=== PATIENT | male | born 1970 | race Caucasian/White ===

== ENCOUNTER 2023-11-20 22:35 | Day surgery (SDC) | payer OTHER ==
[~2023-11-20] VITALS: Ht 182.9 cm; Wt 127.0 kg
[~2023-11-20 22:35] MED LIST: Lidocaine PF 2% (20 MG/ML) 5 ML VIAL IV ONE; Ondansetron 4 MG/2 ML VIAL IV ONE; Rocuronium 50 MG/5 ML Multi-Dose VIAL IV ONE; Succinylcholine PF 200 MG/10 ML SYRINGE IV ONE; ceFAZolin 2 G VIAL IV ONE; dexAMETHasone 10 MG/ML VIAL IV ONE; fentaNYL 50 MCG/ML 2 ML VIAL IV ONE; fentaNYL 50 MCG/ML 5 ML VIAL IV ONE
[2023-11-20 22:54] VITALS: BP 167/96; PULSE 85; TEMP 98
[2023-11-20] MEDS ORDERED: LR 1,000 ML IV SCH (23:00)
[2023-11-20] MEDS ORDERED: LAMISIL250 M1 PO (23:13)
[2023-11-20] MEDS ORDERED: CELEBREX 200MG200 MG PO (23:14)
[2023-11-20] MEDS ORDERED: LOFENA25 MG PO (23:15)
[2023-11-20 23:30] VITALS: BP_SYST 167
[2023-11-20] MEDS ORDERED: HYDROmorphone 1 MG/1 ML SYRINGE [PACU/SDC ONLY] IV PRN (23:30)
[2023-11-20] MEDS ORDERED: Meperidine 50 MG/ML 1 ML VIAL IV PRN (23:30)
[2023-11-20] MEDS ORDERED: hydrALAZINE 20 MG/ML 1 ML VIAL IV PRN (23:30)
[2023-11-20] MEDS ORDERED: Ondansetron 4 MG/2 ML VIAL IV PRN (23:30)
[2023-11-20] MEDS ORDERED: fentaNYL 50 MCG/ML 1 ML SYRINGE/VIAL [PACU/SDC ONLY] IV PRN (23:30)
--- NOTE | 2023-11-20 23:40 | NUR ---
Admission completed. Dr Beebe has talked with the pt and answered any questions. Consent has been signed and pt is being transported down for surgery now (0040).
[2023-11-21] VITALS (9 sets, daily range): BP systolic 113–146; BP diastolic 71–89; PULSE 72–90; TEMP 97.9–99
[2023-11-21] MEDS ORDERED: fentaNYL 50 MCG/ML 2 ML VIAL IV ONE (02:18)
[2023-11-21] MEDS ORDERED: oxyCODONE 5 MG TAB PO PRN (03:30)
[2023-11-21] MEDS ORDERED: Acetaminophen 500 MG TAB PO PRN (03:30)
[2023-11-21] MEDS ORDERED: Ibuprofen 600 MG TAB PO PRN (03:30)
--- NOTE | 2023-11-21 03:57 | NUR ---
Pt recieved back from surgery at 0308. Pt is alert and oriented. He reports pain 6-7/10. He is on 3 L O2 via nasal cannula. No new orders have been placed in eMar. I called Dr. Beebe who gave me PRN orders for tylenol 1000 mg q6, ibuprofen 600 mg q6, and oxycodone 5 mg q4 as needed. Orders were verbally read back to Dr Beebe and verified. Orders put in chart and carried out. Pt was given a sandwich box as requested with his pain medications. Pt denies nausea at this time. 4 left sided lap sites assessed and binder in place. No other needs expressed at this time. Post-op VS being monitored. Call light left within reach.
--- NOTE | 2023-11-21 08:25 | NUR ---
Patient walking in the room. A&Ox4. VSS. IV CDI. Reports pain in abdomen 01/19. Pain medication given as requested. Binder on abdomen. Call light within reach
--- NOTE | 2023-11-21 09:48 | NUR ---
Taxation Agent met with patient to complete intake for discharge planning. Patient verified that he lives alone in [place], [place]. He shared that he is and no long wants his ex- Kerry listed as contact. He is now listing his friend Yony Ortiz ([phone]) as his primary contact. Patient denies having a DPOA and declines to complete one at this time. Patient goes to [facility] for health care needs and uses [facility] pharmacy in [place] or [place] for his medications. Patient states he has a CPAP at home but doesn't use it. Patient states his friend Yony will pick him up at discharge. Patient denies any needs at this time. Discharge plan: home
[2023-11-21] MEDS ORDERED: NORCO 325 MG-51 TAB PO (11:05)
--- NOTE | 2023-11-21 11:31 | NUR ---
Discharge paperwork reviewed with the patient. Patient verbalized an understanding to follow doctors orders. IV removed, tip intact. Gauze and coabn applied. Patient ambulated independently to the ER entrance. No further needs expressed
== END 2023-11-21 11:33 | disposition home or self-care (01) ==
LOC: SURG 22:35 → SDCO 22:35 → SURG 22:36 → SDCO 11-21 11:33
DX: K43.6 Other and unspecified ventral hernia with obstruction, without gangrene (principal); K42.0 Umbilical hernia with obstruction, without gangrene; E66.9 Obesity, unspecified; D72.829 Elevated white blood cell count, unspecified; F17.220 Nicotine dependence, chewing tobacco, uncomplicated; F17.210 Nicotine dependence, cigarettes, uncomplicated; Z86.711 Personal history of pulmonary embolism
CPT/HCPCS: OP; A4314; C1781; G0378; G0379; J0690; J1100; J1170; J2405; J2704; J3010; J7120